=== PATIENT | female | born 1985 | race Two or more races ===

== ENCOUNTER 2016-12-06 21:15 | Emergency (ER) | payer MEDICAID ==
[~2016-12-06] VITALS: Ht 157.5 cm; Wt 120.2 kg
[~2016-12-06 21:15] MED LIST: IV LR 1000 ML 1,000 ML ONE; IV SET PRIMARY 1 EA INFUS.SET MC ONE; ONDANSETRON HCL/PF 4 MG/2 ML VIAL ONE
[2016-12-06] MEDS ORDERED: IV LR 1000 ML 1,000 ML IV ONE (21:30)
[2016-12-06] MEDS ORDERED: ONDANSETRON HCL/PF 4 MG/2 ML VIAL IVP ONE (21:30)
[2016-12-06 22:41] VITALS: BP 117/68
== END 2016-12-06 22:42 | disposition home or self-care (01) ==
LOC: ER 21:17
DX: R11.11 Vomiting without nausea (principal); R10.13 Epigastric pain; F17.210 Nicotine dependence, cigarettes, uncomplicated
CPT/HCPCS: 96361; 96374; 99284; A4606; J2405; J7120; Z7610